=== PATIENT | female | born 1975 | race Caucasian/White ===

== ENCOUNTER → 2016-08-06 | Outpatient (CLI) | payer BC | END | disposition home or self-care (01) | LOC: NUC 07:20 | DX: K31.89 Other diseases of stomach and duodenum (principal); R10.13 Epigastric pain | CPT/HCPCS: 78264; A9541 ==

== ENCOUNTER → 2016-09-05 | Outpatient (CLI) | payer BC ==
[~2016-09-05] VITALS: Ht 157.5 cm; Wt 42.6 kg
[~2016-09-05] MED LIST: ASCORBIC ACID500 M3 PO; CALCIUM MAGNES1 EAC1 PO; LEVSIN0.125 MG PO; OMEPRAZOLE40 M1 PO; OSTEO BI-FLEX1 EAC1 PO; PROBIOTIC1 EAC2 PO; VITAMIN D31000 UNI2 PO
== END | disposition home or self-care (01) ==
LOC: AMB 08:00
PROC: 0DJ08ZZ Inspection of Upper Intestinal Tract, Via Natural or Artificial Opening Endoscopic (ICD-10-PCS; principal; 2016-09-05)
DX: R10.11 Right upper quadrant pain (principal); R01.1 Cardiac murmur, unspecified; K21.9 Gastro-esophageal reflux disease without esophagitis
CPT/HCPCS: C1726; J0330; J1100; J2250; J2405; J3010